=== PATIENT | female | born 1965 | race Caucasian/White ===

== ENCOUNTER 2020-02-27 01:43 | Outpatient (CLI) | payer BC, SELFPAY ==
[2020-02-27 10:39] LABS: HCT 39.7 % (36.0-46.0); HGB 13.2 g/dL (12.0-15.5); Mean Corp. HGB Concentration 33.2 g/dL (32.0-36.0); Mean Corpuscular Hemoglobin 30.6 pg (27.0-33.0); Mean Corpuscular Volume 92.1 fL (80-95); Mean Platelet Volume 10.1 fL (8.0-11.0); Platelet Count 264 x1000/uL (130-400); RBC 4.31 m/cumm (4.00-5.20); RBC Distribution Width 12.1 % (11.7-14.6); White Blood Cell Count 7.09 k/cumm (4.4-10.8)
[2020-02-27 10:53] LABS: HCG Qual (Urine) Negative
[2020-02-29 14:53] LABS: COVID-19 RT-PCR Result NEGATIVE (Negative)
== END 2020-02-27 02:03 ==
PROVIDERS: PCP Nurse Practitioner; Visit Provider Obstetrics & Gynecology
DX: N95.0 Postmenopausal bleeding (principal); Z11.59 Encounter for screening for other viral diseases; Z01.818 Encounter for other preprocedural examination; Z01.812 Encounter for preprocedural laboratory examination
CPT/HCPCS: 85027; 86850; 86900; 86901; U0003; 81025

== ENCOUNTER 2020-02-29 07:17 | Day surgery (SDC) | payer BC, SELFPAY ==
[2020-02-29 06:25] VITALS: BP 117/67; PULSE 71; RESP 19; TEMP 36.4; O2SAT 94
[2020-02-29] MEDS: Lactated Ringers 1,000 ML 125 ML IV (07:30)
[2020-02-29] MEDS: Lidocaine 2% Jelly 6 ML SYR (08:11)
[2020-02-29] MEDS: Silver Nitrate Stick 1 EACH (08:18)
--- NOTE | 2020-02-29 08:19 | ENDO_PTH ---
PATIENT: JOEL HARTLEY LOC: [facility] U#:[id number] AGE/SX: 54/F ROOM: RE02/29/[address]: Barbara Caraballo DO : 1965 BED: DIS: 02/29/2020 SPEC #: [id number] RECD: 02/29/20 12:08 STATUS: MATTHEW RE #: [id number] YOLANDE: 02/29/20 08:[address]: Barbara Caraballo DEPT: Surgical Specimen RECD BY: Liliya Watkins ENTERED: 02/29/20 12:10 SP TYPE: Endo OTHR DR: Meaghan Delgado Tissues: 1 - ENDOCERVICAL BX/CURRETTE 2 - ENDOMETRIUM BX/CURRETTE Procedures: GROSS AND MICRO LEVEL 4 Comments: [id number]
--- NOTE | 2020-02-29 08:37 | ROE_ITS ---
Date of service: 02/29/20 Time of Service: 08:37 Operative Note Operative Note DATE OF PROCEDURE: 02/29/20 PRE-OP DIAGNOSIS: Postmenopausal bleeding Same with endometrial polyp PROCEDURE: Hysteroscopy with dilation and curettage SURGEON: Barbara Caraballo ANESTHESIA: spinal ESTIMATED BLOOD LOSS: 5 PATHOLOGY: other (1. Endocervical curettage 2. endometrial curettage with endometrial polyp) COMPLICATIONS: None Patient was transported to: PACU Patient's condition: stable Indications: Postmenopausal bleeding with thickened endometrium Findings: Endometrial polyp, removed. Remainder of endometrium is smooth and regular. Procedure Description: Patient is a 54-year-old female with postmenopausal bleeding. In her evaluation work-up she was noted to have a thickened endometrium which was vascular in nature. Risks, benefits and alternatives of hysteroscopy with dilation and curettage were explained to the patient in full informed consent was obtained. She was taken the operating suite with an IV running where she was seated and spinal anesthesia administered tested and found to be adequate. She was then placed in the dorsal lithotomy position yellowfin stirrups prepped and draped in the usual sterile fashion. Bladder had been emptied for approximately 25 cc of clear yellow urine. Exam under anesthesia revealed a uterus that was small, mobile, midline. At this point exam was placed into the vaginal vault. Single-tooth tenaculum used to grasp the anterior lip of the cervix. Cervical loss dilated to the point that a 5 mm hysteroscope could be passed with ease. With direct visualization of the endocervical and endometrial cavities there was noted to be smooth irregular endometrial service, no endocervical lesions, and a freely mobile endometrial polyp. At this point hysteroscope was removed and that portion of the procedure discontinued. A sharp endocervical curetting was performed for scant tissue followed by endometrial curettage with extraction of a 6 mm endometrial polyp consistent with findings at hysteroscope. At this point procedure was terminated single- tooth tenaculum removed from the anterior lip of the cervix and speculum was removed. Patient returned to the dorsal supine position and awoke from anesthesia with ease. She was taken to the recovery room in stable condition Complications: None apparent EBL: 25 mL's Fluids: Crystalloid per anesthesia and no deficit of normal saline installation in the hysteroscopic portion of the examination.
[2020-02-29 09:17] VITALS: BP 100/55; PULSE 54; RESP 19; TEMP 36; O2SAT 93
[2020-02-29 09:55] VITALS: BP 105/60; PULSE 59; RESP 15; TEMP 36.2; O2SAT 95
[2020-02-29 10:45] VITALS: BP 107/62; PULSE 62; RESP 17; TEMP 36; O2SAT 94
== END 2020-02-29 11:32 | disposition home or self-care (01) ==
PROVIDERS: PCP Nurse Practitioner; Visit Provider Obstetrics & Gynecology
PROC: 0UDB8ZZ Extraction of Endometrium, Via Natural or Artificial Opening Endoscopic (ICD-10-PCS; CPT 58558; principal; 2020-02-29 07:30)
DX: N95.1 Menopausal and female climacteric states (principal); R93.89 Abnormal findings on diagnostic imaging of other specified body structures; N84.0 Polyp of corpus uteri
CPT/HCPCS: 58558; 81025; 88305; J2001; J2250; J2405; J3010

== ENCOUNTER 2020-06-12 01:03 | Outpatient (CLI) | payer BC, SELFPAY ==
--- NOTE | 2020-06-12 07:45 | DI.US_ITS ---
EXAM: US PELVIS TRANSVAGINAL CLINICAL HISTORY: POSTMENOPAUSAL BLEEDING,N95.0 TECHNIQUE: Ultrasound performed using standard protocol. COMPARISON: No exams were available for comparison FINDINGS: Pelvic ultrasound was trans abdominally and transvaginally. There are multiple apparent uterine fibr oids, acoustic shadowing from fibroids and the patient's body habitus make the endometrial stripe dif ficult to visualize, stripe grossly appears to be about 8 millimeters in thickness. Largest uterine fibroid is about 31 x 30 x 25 millimeters in diameter and is in anterior fundal regio n on the left. Overall uterine measurements are 82 x 36 x 56 millimeters. The ovaries are unremarkable in appearance, right ovary measures 21 x 11 x 15 millimeters and left ov saurabh measures 23 x 10 x 17 millimeters. No free fluid identified in the cul-de-sac. Kidneys are unremarkable in appearance on limited scanni ng. IMPRESSION: Multiple uterine fibroids, obscured endometrial stripe. Unremarkable appearance of the ovaries. DATA REPOSITORY:
== END 2020-06-12 01:23 ==
PROVIDERS: PCP Nurse Practitioner; Visit Provider Obstetrics & Gynecology
DX: N95.0 Postmenopausal bleeding (principal); D25.9 Leiomyoma of uterus, unspecified
CPT/HCPCS: 76830; 76856